=== PATIENT | female | born 1990 | race Caucasian/White ===

== ENCOUNTER 2021-05-04 07:09 | Inpatient (IN) | payer MEDICAID ==
[~2021-05-04 07:09] MED LIST: Acetaminophen 500 MG Tab PO ONE; Scopolamine 1.5 MG Transdermal Patch TOP ONE; cefOXitin 2 GM Vial ONE; cefOXitin 2 GM in Sodium Chloride 0.9% 100 ML IV ONE; cefOXitin 2 GM in Sodium Chloride 0.9% 50 ML IV ONE
[2021-05-04] MEDS ORDERED: Dextrose 5%-Lactated Ringers 1,000 ML IV SCH ×2 (07:30→07:45)
[2021-05-04] MEDS ORDERED: Acetaminophen 500 MG Tab PO ONE (07:45)
[2021-05-04] MEDS ORDERED: Scopolamine 1.5 MG Transdermal Patch TOP ONE (07:45)
[2021-05-04] MEDS ORDERED: fentaNYL 250 MCG/5 ML SDV ONE ×2 (07:46→10:04)
[2021-05-04] MEDS ORDERED: Neostigmine Methylsulfate 1 MG/ML 5 ML Syringe ONE (07:47)
[2021-05-04] MEDS ORDERED: Propofol 200 MG/20 ML SDV ONE (07:47)
[2021-05-04] MEDS ORDERED: Rocuronium 50 MG/5 ML Vial ONE ×3 (07:47→12:17)
[2021-05-04] MEDS ORDERED: Glycopyrrolate 0.2 MG/ML 5 ML MDV ONE (07:47)
[2021-05-04] MEDS ORDERED: Succinylcholine 200 MG/10 ML MDV ONE (07:47)
[2021-05-04] MEDS ORDERED: Dexamethasone 4 MG/ML SDV ONE (07:47)
[2021-05-04] MEDS ORDERED: Ondansetron 4 MG/2 ML SDV ONE (07:47)
[2021-05-04 07:57] LABS: HEMOGLOBIN A1C 5.7 % (4.5-6.2)
[2021-05-04] MEDS ORDERED: Celecoxib 200 MG Cap PO ONE (08:00)
[2021-05-04] MEDS ORDERED: Ketamine 500 MG/5 ML MDV IV SCH (08:30)
[2021-05-04] MEDS ORDERED: Ketamine 18 MG in Sodium Chloride 0.9% 19.82 ML IV SCH (08:30)
[2021-05-04] MEDS ORDERED: cefOXitin 2 GM in Sodium Chloride 0.9% 50 ML IV ONE (08:45)
[2021-05-04] MEDS ORDERED: Labetalol 20 MG/4 ML Syringe ONE (10:38)
[2021-05-04] MEDS ORDERED: Meropenem 500 MG SDV ONE (12:00)
[2021-05-04] MEDS ORDERED: hydrOXYzine HCL 100 MG/2 ML SDV IM ONE (13:04)
[2021-05-04] MEDS ORDERED: fentaNYL 100 MCG/2 ML SDV IVPUSH ONE (13:15)
[2021-05-04] MEDS ORDERED: diphenhydrAMINE 50 MG/ML SDV IVPUSH PRN ×2 (14:05→15:00)
[2021-05-04] MEDS ORDERED: Albuterol/Ipratropium 3.0-0.5 MG/3 ML Neb Soln INH PRN (14:17)
[2021-05-04] MEDS: Acetaminophen 500 MG Tab PO SCH ×2 (15:00→23:26)
[2021-05-04] MEDS ORDERED: traMADol 50 MG Tab PO PRN (15:00)
[2021-05-04] MEDS: Cyclobenzaprine 10 MG Tab PO PRN ×2 (15:00→23:27)
[2021-05-04] MEDS ORDERED: HYDROmorphone 0.5 MG/0.5 ML Syringe IVPUSH PRN (15:00)
[2021-05-04] MEDS ORDERED: Metoclopramide 10 MG/2 ML SDV IVPUSH PRN (15:00)
[2021-05-04] MEDS ORDERED: Labetalol 20 MG/4 ML Syringe IVPUSH PRN (15:00)
[2021-05-04] MEDS ORDERED: Acetaminophen 500 MG Tab PO PRN (15:00)
[2021-05-04] MEDS ORDERED: HYDROmorphone 1 MG/ML Syringe IV PRN (15:00)
[2021-05-04] MEDS ORDERED: Ondansetron 4 MG/2 ML SDV IVPUSH PRN (15:00)
[2021-05-04] MEDS: Pantoprazole 40 MG Vial IVPUSH SCH (15:33)
[2021-05-04] MEDS: cefOXitin 2 GM in Sodium Chloride 0.9% 50 ML IV SCH ×2 (15:33→21:54)
[2021-05-04] MEDS ORDERED: MVI, Adult with Vitamin K 10 ML, Thiamine 200 MG, Zinc/Copper/Manganese/Selenium 1 ML i... IV SCH ×4 (16:00)
[2021-05-04] MEDS: Heparin Sodium 5,000 Units/ML Vial SUBCUT SCH (17:22)
[2021-05-04] MEDS: hydrOXYzine HCL 100 MG/2 ML SDV IM PRN ×2 (18:02→23:27)
[2021-05-04] MEDS: oxyCODONE 5 MG Tab PO PRN (20:08)
[2021-05-04] MEDS: Dextrose 5%-Lactated Ringers 1,000 ML IV SCH (21:54)
[2021-05-05] MEDS ORDERED: Iopamidol 612 MG/ML 50 ML SDV PO STA (03:23)
[2021-05-05] MEDS: cefOXitin 2 GM in Sodium Chloride 0.9% 50 ML IV SCH ×3 (03:32→15:31)
[2021-05-05] MEDS: Heparin Sodium 5,000 Units/ML Vial SUBCUT SCH ×3 (03:35→17:53)
[2021-05-05] MEDS: oxyCODONE 5 MG Tab PO PRN ×3 (04:21→19:35)
[2021-05-05] MEDS: Dextrose 5%-Lactated Ringers 1,000 ML IV SCH (04:45)
[2021-05-05] MEDS ORDERED: Dextrose 5%-Lactated Ringers 1,000 ML IV SCH (07:00)
[2021-05-05] MEDS ORDERED: Ondansetron 4 MG Tab.DIS PO PRN (07:00)
[2021-05-05] MEDS: Acetaminophen 500 MG Tab PO SCH ×3 (08:25→23:11)
[2021-05-05] MEDS: Cyclobenzaprine 10 MG Tab PO PRN ×2 (08:27→16:34)
[2021-05-05] MEDS: Celecoxib 200 MG Cap PO SCH ×2 (08:27→20:58)
--- NOTE | 2021-05-05 09:01 | PN ---
DATE OF SERVICE: 05/05/2021 SUBJECTIVE: Yue is postop day 1 following a duodenal switch. She has slept well during the night. Pain has been controlled. Vital signs have been stable. Oral intake 640. Urine output via Borrego catheter is 3460. Upper GI was normal. REVIEW OF SYSTEMS: Remainder of review of systems negative for any pertinent positives and negatives. OBJECTIVE: GENERAL: Yue is a pleasant 30-year-old female. She is alert, orientated, quite talkative. VITAL SIGNS: TPR is 96.6, 111, 18, blood pressure 163/93, and rechecked and it was 128/69, O2 is 95%. She did sleep with her CPAP on intermittently between x-rays and vital signs. Pulse did run tachy which is her normal at 110 to 117. HEENT: Negative. NECK: Supple. HEART: Regular rate and rhythm, but tachy, but regular. ABDOMEN: Dressing dry and intact. ARLETTE drain intact and put out 145 mL of a light serosanguineous drainage. EXTREMITIES: Without peripheral edema. ASSESSMENT: Diagnostic laparoscopy with duodenal switch, repair of paraesophageal hernia, and liver biopsy. Date of procedure: 05/04/2021. Surgeon: Jp Gonzalez MD. PLAN: 1. Ferrous gluconate 250 mg IV today and tomorrow for ferritin of 29. 2. Discontinue Borrego catheter. 3. Decrease IV to 100 mL per hour. 4. Step 2 gastric bypass diet without cereal. 5. Atarax 50 mg q.4 hours p.r.n. pain. 6. Dressing off, may shower. 7. Zofran ODT 4 mg q.4 hours p.r.n. nausea. 8. Communication order written to drink 3 med cups per hour, 1 every 20 minutes, record at bedside. Encouraged ambulation 6 times daily and use of incentive spirometer 10 times every hour while awake. 9. We will evaluate p.r.n. or in a.m. Desi Mcclain PA-C /[id number]
--- NOTE | 2021-05-05 09:18 | CR ---
[facility] HISTORY: Postbariatric surgery FINDINGS: Patient swallowed water-soluble contrast. Upright views of the abdomen show no evidence of extravasation or obstruction. There is a surgical drain in the left upper quadrant. IMPRESSION: Status post bariatric surgery No extravasation or obstruction seen
[2021-05-05] MEDS: SCOPOLAMINE PATCH CHECK TOP SCH (09:53)
[2021-05-05] MEDS ORDERED: Sodium Ferric Gluconate Cmplex 250 MG in Sodium Chloride 0.9% 100 ML IV SCH (10:00)
[2021-05-05] MEDS: hydrOXYzine HCl 25 MG Tab PO PRN (11:31)
[2021-05-05] MEDS ORDERED: MVI, Adult with Vitamin K 10 ML, Thiamine 200 MG, Zinc/Copper/Manganese/Selenium 1 ML i... IV SCH ×4 (16:00)
[2021-05-05] MEDS: Pantoprazole 40 MG Vial IVPUSH SCH (16:33)
[2021-05-06] MEDS: Heparin Sodium 5,000 Units/ML Vial SUBCUT SCH ×2 (02:53→10:37)
[2021-05-06] MEDS: oxyCODONE 5 MG Tab PO PRN (02:53)
[2021-05-06] MEDS: Acetaminophen 500 MG Tab PO SCH (07:36)
[2021-05-06] MEDS: Celecoxib 200 MG Cap PO SCH (08:39)
[2021-05-06] MEDS: SCOPOLAMINE PATCH CHECK TOP SCH (08:40)
[2021-05-06] MEDS ORDERED: Magnesium Hydroxide 400 MG/5 ML Susp 30 ML Cup PO ONE (09:00)
[2021-05-06] MEDS ORDERED: Cyanocobalamin (Vitamin B12) 1,000 MCG/ML SDV IM ONE (09:00)
[2021-05-06] MEDS: hydrOXYzine HCl 25 MG Tab PO PRN (11:31)
[2021-05-06] MEDS: Cyclobenzaprine 10 MG Tab PO PRN (13:24)
--- NOTE | 2021-05-07 11:31 | DISCH ---
ADMISSION DIAGNOSES: 1. Morbid obesity. 2. Body mass index 64.4. 3. Hypertension, controlled. 4. Obstructive sleep apnea. 5. Anxiety. DISCHARGE DIAGNOSES: Diagnostic laparoscopy with: 1. Laparoscopic duodenal switch. 2. Liver biopsy. 3. Repair of paraesophageal diaphragmatic hernia. POSTOPERATIVE DIAGNOSES: Morbid obesity, marked hepatomegaly, and diaphragmatic hernia. Date of procedure: 05/04/2021. HISTORY: Yue Suarez is a pleasant 30-year-old female with longstanding history of morbid obesity and increasing comorbidities. After preoperative evaluation and discussion of possible risks and possible complications, she wished to proceed with surgical procedure. HOSPITAL COURSE: Yue had her surgery on 05/04/2021. She had no operative complications. On postoperative day #1, she was started on a step 2 gastric bypass diet, and on postop day 2, she was able to be discharged to home. Her intake was marginal but increased prior to discharge. She was given the 3 med cups, passing flatus, had adequate dietary instruction. Vital signs were stable. She had no other concerns or complaints. OBJECTIVE: GENERAL: Yue is a pleasant 30-year-old female. VITAL SIGNS: Height 5 feet 7.75 inches, weight is 426 pounds, 7.98 ounces. TPR 95.9, 94, 18, blood pressure 127/83. HEENT: Negative. NECK: Supple. HEART: Regular rate and rhythm. LUNGS: Clear. ABDOMEN: Dressings dry and intact. Trocar sites look good. Incisions intact. ARLETTE drain will be removed prior to discharging. It is draining a clear serosanguineous drainage 150 mL in the past 24 hours. EXTREMITIES: Without peripheral edema. DISPOSITION: Discharged to home. CONDITION: Stable and improving. FOLLOWUP: Followup appointment with Desi Mcclain PA-C, on 05/15/2021 at 10 a.m. at [facility]. HOME MEDICATIONS: 1. Celebrex 200 mg p.o. b.i.d. #28. 2. Hydroxyzine 50 mg p.o. q.4 hours p.r.n. #30 for pain. 3. Zofran ODT 4 mg p.o. q.4 hours p.r.n. #30 p.r.n. nausea and vomiting. 4. Milk of magnesia 2 doses were sent home with the patient to take 1 daily p.r.n. constipation. 5. Tylenol 1000 mg q.8 hours scheduled for 1 week, then may take as needed. 6. She is to resume valtrex 1000 mg p.o. b.i.d. as needed. DIET: Step 2 gastric bypass diet with no cereal until June 05, 2021. To drink 8 to 10 glasses of water a day. ACTIVITY: No lifting greater than 10 pounds for 2 weeks. OTHER ACTIVITY: Walk 6 times daily inside your home. Driving: Do not drive for 1 week. Shower/bathing: May shower. Keep operative site clean and dry. Wear abdominal binder for 2 weeks and as tolerated. Notify provider if any fever, increased pain, swelling, redness, drainage, nausea, or vomiting. SPECIAL INSTRUCTIONS: Use incentive spirometer 10 times every hour while awake for 1 week. Keep record of protein and water intake and bring to clinic appointments. /[id number]
--- NOTE | 2021-05-14 12:30 | OR ---
DATE OF PROCEDURE: SURGEON: Jp Gonzalez MD PREOPERATIVE DIAGNOSIS: Morbid obesity. POSTOPERATIVE DIAGNOSES: 1. Morbid obesity. 2. Marked hepatomegaly. 3. Paraesophageal diaphragmatic hernia. OPERATIVE PROCEDURE: Diagnostic laparoscopy with: 1. Laparoscopic duodenal switch. 2. Dheeraj-Cut needle liver biopsy. 3. Repair of paraesophageal diaphragmatic hernia. ANESTHESIA: General. DRUG AND ALCOHOL COUNSELLOR: Desi Mcclain PA-C INDICATION FOR PROCEDURE: This is a 30-year-old female presenting with longstanding morbid obesity and increasingly significant comorbidities. After preoperative evaluation and discussion, she wished to proceed with a duodenal switch. Potential risks of the procedure including bleeding, infection, injury to underlying viscera, problems with leaks from GI tract staple lines or closures, as well as possibility of cardiopulmonary, septic, or hemorrhagic complications leading to were all discussed, and the patient wishes to proceed. DETAILS OF PROCEDURE: The patient was taken to the operating room and placed in a supine position. After general endotracheal anesthesia was induced, she was converted to a lithotomy position. A Borrego catheter was inserted, and the abdomen prepped and draped. A 20 cm inferior and 5 cm left of the xiphoid process, a transverse incision was made and the peritoneal cavity entered under direct vision with an Optiview trocar, inflated to 15 mmHg pressure of CO2. Laparoscope was then reinserted. No underlying trocar insertion site injuries were seen. Following this, bilateral transversus abdominis plane blocks were placed and 6 additional trocars were placed across the upper and midabdomen. The liver was noted to be quite thickened and some fibrotic in appearance with very limited amount of nodularity on its surface. There does not appear to be any portal hypertension on inspection of the mesenteric vein. Dheeraj-Cut needle biopsies were obtained from the left lobe of liver. Minimal bleeding from biopsy sites was controlled with electrocautery. At this point, the small bowel was assessed for adequate mobility up to the duodenum. Beginning at the ileocecal valve, the small bowel was traced out 300 cm proximal to that. This came up just barely to the duodenum. At that point, decision was made to proceed with the duodenal ileostomy but not the second small bowel anastomosis at this time so as to limit chances of that duodenal ileostomy leaking and perform secondary anastomosis at a later time should that become necessary. The small bowel up to 300 cm mer proximal to the ileocecal valve was then stitched to the omentum to help re-identify later in the case. At this point, the liver was retracted anteriorly. The patient was noted to have a moderate- sized paraesophageal diaphragmatic hernia. The latter was reduced and peritoneum overlying incised and reflected downward, and anterior diaphragmatic hernia repair was then accomplished using 0 Ethibond sutures reinforced with PTFE pledgets. At this point, the greater curvature of stomach was divided away from the omentum. This dissection then continued proximally to include any short gastric as well as highest posterior short gastric vessels. The fundus of the stomach was then skeletonized away from the left sumi and at that point appeared to be adequately mobilized in that direction. The dissection of the omentum then continued distally to a 0.4 cm distal to the pylorus. The gastrectomy resection phase at this point was initiated after marking the antrum beginning 6 cm proximal to the pylorus and then continuing that underneath the incisura angularis to avoid any overtightening of that area so as to avoid obstruction of the stomach at the incisura level. First 3 firings of HANH lilliana were with reinforced black loads. Following this, then a 40-English chest tube was then placed orally per Anesthesia across the esophagogastric junction and positioned along the lesser curvature of the stomach. The remainder of the gastrectomy staple line was accomplished with reinforced black loads greater curvature. Following completion of the staple lines, the stomach appeared to be satisfactorily controlled in terms of adequacy of staple lines and the resected stomach was passed off to the side. At this point, dissection began at the duodenum 4 cm distal to the pylorus was initiated. Once this plane was established, the duodenum was divided roughly 3 to 4 cm distal to the pylorus with HANH purple load with reinforcement. The duodenum dropped down somewhat further with position of some of the lesser omental tissue across the proximal most duodenum and distal most stomach. This then allowed divided duodenum which at this point appeared to have adequate blood supply. At this point, the stay sutures between the small bowel at the previously marked point were placed with 3-0 Vicryl sutures, one placed at the upper end of the divided duodenum, one at the lower end, then additional stitch to the lower end between the duodenum and the small bowel was made so as to allow complex. Duodenotomy and enterotomy were then placed on the inferior aspect of the duodenum and adjacent jejunum, and single internal firing of the HANH 30 mm christianson load was accomplished, thus initiating the duodenal ileostomy. The stay sutures were then placed at the upper and lower ends of the open side of the anastomosis . These were then pulled up while the HANH purple load was fired across adequate closure of the common opening. The was then reinforced with 3-0 Vicryl seromuscular stitches as well. The anastomosis was then reinforced with fibrin sealant as was the sleeve gastrectomy staple line was the focus being placed along the area of esophagogastric junction. The omentum was then tacked up along the area of the esophagogastric junction with some additional 3-0 Vicryl stitches as well, and at this point, the chest tube was removed and the balloon catheter was then placed orally into the sleeve gastrectomy. This was then inflated while the duodenal ileostomy and sleeve gastrectomy staple lines were submerged in antibiotic-containing saline solution through the anastomosis was confirmed and no leaks were seen at any point along the duodenal ileostomy or sleeve gastrectomy staple line. At that point, hemostasis appeared to be satisfactory. The gastric specimen was then retrieved through the left lateral trocar site, and at that point, a single Artemio-Nobles drain was placed through the left lateral trocar site up against the area of the esophagogastric junction and from there into the splenic fossa. The trocars were removed and peritoneal cavity deflated. Incisions were closed with some 4-0 Vicryl skin stitch, which was also used to fix the drain, and the patient was taken to the recovery room in satisfactory condition. There were no evident complications. Physician furniture removalist's assistant, Desi Mcclain, played an essential role in assisting in this case, helping to position the patient, retract structures as needed, as well as suturing and cutting sutures when indicated. Her presence improved patient safety and decreased the operative time. Jp Gonzalez MD /[id number]
== END 2021-05-06 13:45 | disposition home or self-care (01) | DRG 621 ==
LOC: JP.SDS 07:09 → EDSTATUS 08:45 → JP.MS 13:00
PROVIDERS: ADMIT Surgery; ATTEND Surgery
PROC: 0D194ZB Bypass Duodenum to Ileum, Percutaneous Endoscopic Approach (ICD-10-PCS; principal; 2021-05-04)
PROC: 0FB24ZX Excision of Left Lobe Liver, Percutaneous Endoscopic Approach, Diagnostic (ICD-10-PCS; 2021-05-04)
PROC: 0BQT4ZZ Repair Diaphragm, Percutaneous Endoscopic Approach (ICD-10-PCS; 2021-05-04)
PROC: 0DB64Z3 Excision of Stomach, Percutaneous Endoscopic Approach, Vertical (ICD-10-PCS; 2021-05-04)
DX: E66.01 Morbid (severe) obesity due to excess calories (principal); Z68.44 Body mass index [BMI] 60.0-69.9, adult; G47.33 Obstructive sleep apnea (adult) (pediatric); F41.9 Anxiety disorder, unspecified; R16.0 Hepatomegaly, not elsewhere classified; K44.9 Diaphragmatic hernia without obstruction or gangrene; F32.A Depression, unspecified; I10 Essential (primary) hypertension; Z79.899 Other long term (current) drug therapy
CPT/HCPCS: 36415; 74240; 74240-26; 80053; 81025; 82306; 82728; 83036; 83735; 84100; 84590; 85027; 86850; 86900; 86901; 88307; 88313; 94640; 94762; A9270-GY; C9113; J0171; J0330; J0694; J1100; J1644; J2185; J2405; J2704; J2710; J2795; J2916; J3010; J3410; J3411; J3420; J3490; J7121; J7620-GY; Q9967